=== PATIENT | male | born 2000 | race Hispanic/Latino ===

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

== ENCOUNTER 2021-11-26 03:58 | Observation (INO) | payer OTHER ==
[~2021-11-26] VITALS: Ht 172.7 cm; Wt 81.2 kg
[2021-11-26 04:37] LABS: APPEARANCE,URINE Clear (CLEAR); BILIRUBIN,URINE Negative (NEGATIVE); COLOR,URINE Yellow (YELLOW); GLUCOSE, URINE (UA) >=1000 mg/dL (NEGATIVE); KETONES,URINE 40 mg/dL (NEGATIVE); LEUKOCYTE ESTERASE ,URINE Negative (NEGATIVE); NITRATE,URINE Negative (NEGATIVE); OCCULT BLOOD,URINE Negative (NEGATIVE); PROTEIN,URINE Negative (NEGATIVE); UROBILINOGEN,URINE 0.2 mg/dL (0.2-1.0)
[2021-11-26] MEDS ORDERED: 0.9%NACL 1000ML 2,000 ML IV ONE ×2 (04:38→05:00)
[2021-11-26 04:51] LABS: BACTERIA,URINE None Seen /HPF (None Seen); RBC,URINE 0-1 /HPF (0-1); SQUAMOUS EPITHELIAL CELL,UR Rare /HPF (0-2); WBC,URINE None Seen /HPF (0-1)
[2021-11-26 04:53] LABS: BASOPHILS % (AUTO) 0.4 % (0.0-5.0); EOSINOPHILS % (AUTO) 1.6 % (0.0-8.0); HEMATOCRIT 44.7 % (42-54); LYMPHOCYTES % (AUTO) 21.3 % (21.0-51.0); MEAN CORPUSCULAR HEMOGLOBIN 30.9 pg (27.0-33.0); MEAN CORPUSCULAR HGB CONC 36.5 g/dL (32.0-36.0); MEAN CORPUSCULAR VOLUME 84.7 fL (80-100); MONOCYTES % (AUTO) 6.8 % (3.0-13.0); NEUTROPHILS % (AUTO) 69.5 % (40.0-77.0); PLATELET COUNT (AUTO) 244 K/uL (130-400); RED BLOOD CELL COUNT(AUTO) 5.28 MIL/uL (4.50-6.20); RED CELL DISTRIBUTION WIDTH 11.9 % (11.0-15.5)
[2021-11-26 05:03] LABS: ALBUMIN 4.3 g/dL (3.5-5.0); BILIRUBIN,TOTAL 0.6 mg/dL (0.2-1.0); CREATININE 1.2 mg/dL (0.5-1.5); POTASSIUM 5.1 mmol/L (3.5-5.1); TOTAL PROTEIN, SERUM 7.3 g/dL (6.0-8.3)
[2021-11-26] MEDS ORDERED: POTASSIUM CHLORIDE 10% ELIXIR 20 MEQ/15 ML UDCUP PO PRN (05:30)
[2021-11-26] MEDS ORDERED: ACETAMINOPHEN 325 MG TAB PO PRN (05:30)
[2021-11-26] MEDS ORDERED: ZOLPIDEM TARTRATE 5 MG TAB PO PRN (05:30)
[2021-11-26] MEDS ORDERED: HYDROCODONE/ACETAMINOPHEN 5/325 MG TAB PO PRN (05:30)
[2021-11-26] MEDS ORDERED: DEXTROSE 50%-WATER 50 ML DISP.SYRIN IV PRN (05:30)
[2021-11-26] MEDS ORDERED: ONDANSETRON 4MG INJ IV PRN (05:30)
[2021-11-26] MEDS ORDERED: LIDOCAINE HCL-MPF 1% 2ML VIAL IV PRN (05:30)
[2021-11-26] MEDS ORDERED: INSULIN HUMULIN R 100 UNIT/ML 3ML IV ONE (05:30)
[2021-11-26] MEDS ORDERED: 0.9%NACL 1000ML 1,000 ML IV SCH (05:30)
[2021-11-26] MEDS ORDERED: POTASSIUM CHLORIDE 20MEQ/100ML 100 ML IV PRN (05:30)
[2021-11-26] MEDS ORDERED: GLUCAGON 1MG KIT 1 MG ML IM PRN (05:30)
[2021-11-26] MEDS ORDERED: KCL 20 MEQ ERTAB PO PRN (05:30)
[2021-11-26] MEDS ORDERED: MAGNESIUM 2GM PREMIX 50ML 50 ML IV PRN (05:30)
[2021-11-26 05:46] LABS: MAGNESIUM 1.9 mg/dL (1.80-2.40); PHOSPHORUS 4.6 mg/dL (2.5-4.9)
[2021-11-26 05:56] LABS: ABG OXYGEN SATURATION 68.2 % (95.0-99.0); BASE EXCESS,VENOUS BLOOD GAS -2.2 (-2.0-3.0); HCO3,VENOUS BLOOD GAS 24.3 (21.0-28.0); PCO2,VENOUS BLOOD GAS 48 (35-48); PH,VENOUS BLOOD GAS 7.326 (7.350-7.450)
[2021-11-26] MEDS: 0.9%NACL 1000ML 1,000 ML IV SCH ×2 (06:38→15:30)
[2021-11-26] MEDS ORDERED: INSULIN HUMULIN R 100 UNIT/ML 3ML SQ SCH (07:30)
[2021-11-26] MEDS ORDERED: ENOXAPARIN SODIUM 40 MG/0.4 ML SYRINGE SQ SCH (09:00)
[2021-11-26] MEDS ORDERED: FAMOTIDINE 20MG VIAL IV SCH (09:00)
[2021-11-26] MEDS ORDERED: INSULIN LISPRO 100 UNIT/ML 3ML SQ SCH (11:30)
[2021-11-26 11:52] LABS: CREATININE 0.8 mg/dL (0.5-1.5); MAGNESIUM 1.8 mg/dL (1.80-2.40); POTASSIUM 3.6 mmol/L (3.5-5.1)
[2021-11-26] MEDS: INSULIN LISPRO 100 UNIT/ML 3ML SQ SCH ×2 (11:59→16:12)
[2021-11-26 16:00] VITALS: BP 111/58
[2021-11-26] MEDS ORDERED: METF-444 PO (19:30)
[2021-11-26] MEDS ORDERED: ESCI-8 PO (19:30)
[2021-11-26 20:08] LABS: CREATININE 0.9 mg/dL (0.5-1.5); MAGNESIUM 1.7 mg/dL (1.80-2.40)
[2021-11-26] MEDS ORDERED: INSULIN GLARGINE 100 UNITS/ML 10 ML VIAL SQ SCH (21:00)
== END 2021-11-26 20:40 | disposition home or self-care (01) ==
LOC: EDH 03:58 → EDHIP 05:25 → 3CH 09:55
PROVIDERS: ADMIT Internal Medicine; ATTEND Internal Medicine
DX: E11.65 Type 2 diabetes mellitus with hyperglycemia (principal); E86.0 Dehydration; F41.9 Anxiety disorder, unspecified; I10 Essential (primary) hypertension; E86.9 Volume depletion, unspecified; E11.10 Type 2 diabetes mellitus with ketoacidosis without coma; H54.7 Unspecified visual loss; Z79.84 Long term (current) use of oral hypoglycemic drugs; Z91.19 Patient's noncompliance with other medical treatment and regimen; Z79.899 Other long term (current) drug therapy
CPT/HCPCS: 36415; 36600; 80053; 81001; 82010; 82435; 82803; 82947 ×2; 82948 ×3; 83036; 83605; 83735 ×3; 84100; 84132; 84295; 85025; 96361; 96372; 96374; 99291; G0378 ×15; J1650; J1815; J3490; J7030; 80048